=== PATIENT | female | born 1960 | race Caucasian/White ===

== ENCOUNTER 2022-11-29 17:26 | Outpatient (REF) | payer MEDICAID, SELFPAY ==
[2022-11-29 19:59] LABS: HCT 41.3 % (36.0-46.0); HGB 13.7 g/dL (11.2-15.7); MCH 30.5 pg (27.0-33.0); MCHC 33.2 % (32.0-36.0); MCV 92 fL (80-95); MPV 8.8 fL (8.0-11.0); Platelet Count 263 10^3/uL (130-400); RBC 4.49 10^6/uL (3.93-5.22); RDW 12.5 % (11.7-14.6); RDW-SD 42.1 fL; WBC 7.47 10^3/uL (4.4-10.8)
[2022-11-29 20:13] LABS: Hemoglobin A1C 5.7 % (<5.7)
[2022-11-29 20:19] LABS: ALT 42 U/L (14-59); AST 25 U/L (15-37); Albumin 3.7 g/dL (3.4-5.0); Alkaline Phosphatase 151 U/L (46-116); Anion Gap 6.3 mmol/L (3-11); BUN 25 mg/dL (7-18); Bilirubin, Total 0.2 mg/dL (0.2-1.0); CO2 30.7 mmol/L (21.0-32.0); CREATININE 1.1 mg/dL (0.55-1.02); Chloride 101 mmol/L (98-107); Estimated GFR 56.11 (mL/min/1.73m2); Glucose 102 mg/dL (74-106); Sodium 138 mmol/L (136-145); Total Protein 7.6 g/dL (6.4-8.2)
[2022-11-29 20:32] LABS: Vitamin D 25 Total 36.2 ng/mL (30-100)
== END 2022-11-29 17:27 | disposition home or self-care (01) ==
LOC: NCHCN 17:26
PROVIDERS: Visit Provider Family Medicine
DX: E55.9 Vitamin D deficiency, unspecified (principal); R73.03 Prediabetes; E78.5 Hyperlipidemia, unspecified; N18.9 Chronic kidney disease, unspecified; R22.1 Localized swelling, mass and lump, neck
CPT/HCPCS: 80053; 82306; 85027; 83036; 84443

== ENCOUNTER 2023-01-03 14:50 | Outpatient (REF) | payer MEDICAID, SELFPAY ==
--- NOTE | 2023-01-03 14:15 | PAPFT_PTH ---
[facility]: [id number] AGE/SX: 62/F ROOM: RE01/03/[address]: Viola Peña : 1960 BED: DIS: 01/03/2023 SPEC #: [id number] RECD: 01/04/23 13:13 STATUS: CHAD REJimmie #: [id number] [place]: 01/03/23 14:[address]: Viola Peña DEPT: [facility] Cytology RECD BY: Pema Gray Tissues: 1 - CX/ENDOCX FOR PAP SMEARS Procedures: PAP THIN PREP/[facility] Screening HPV DNA PROBE Comments: [id number]
== END 2023-01-03 14:51 | disposition home or self-care (01) ==
LOC: NCHCN 14:50
PROVIDERS: Visit Provider Family Medicine
DX: Z00.00 Encounter for general adult medical examination without abnormal findings (principal); Z12.4 Encounter for screening for malignant neoplasm of cervix
CPT/HCPCS: 88142; 87624

== ENCOUNTER 2024-01-13 13:17 | Outpatient (REF) | payer MEDICARE, SELFPAY ==
[2024-01-13 22:08] LABS: Anion Gap 5.8 mmol/L (3-11); BUN 14 mg/dL (7-18); CO2 30.2 mmol/L (21.0-32.0); CREATININE 1.2 mg/dL (0.55-1.02); Calcium 9.5 mg/dL (8.5-10.1); Calculated LDL 115 mg/dL (<100); Chloride 103 mmol/L (98-107); Cholesterol 212 mg/dL (<200); Estimated GFR 50.23 (mL/min/1.73m2); Glucose 100 mg/dL (74-106); HDL Cholesterol 45 mg/dL (40-60); Magnesium 2.1 mg/dL (1.8-2.4); Potassium 4.7 mmol/L (3.5-5.1); Sodium 139 mmol/L (136-145); TSH (W/Ref FT4) 1.55 uIU/mL (0.36-3.74); Triglyceride 264 mg/dL (<150); Vitamin D 25 Total 31.1 ng/mL (30-100)
== END 2024-01-13 13:18 | disposition home or self-care (01) ==
LOC: NCHCN 13:17
PROVIDERS: PCP Family Medicine; Visit Provider Family Medicine
DX: E66.9 Obesity, unspecified (principal); R53.83 Other fatigue; E55.9 Vitamin D deficiency, unspecified; Z13.220 Encounter for screening for lipoid disorders
CPT/HCPCS: 80048; 80061; 82306; 83735; 84443